=== PATIENT | male | born 1975 | race Two or more races ===

== ENCOUNTER 2019-11-04 10:44 | Inpatient (IN) | payer SELFPAY ==
[~2019-11-04] VITALS: Ht 160 cm; Wt 90.6 kg
[2019-11-04 11:21] LABS: Urine Bacteria NONE SEEN /hpf (None Seen); Urine Blood 3+ /uL (Negative); Urine Mucus FEW (None Seen); Urine Specific Gravity 1.018 (1.001-1.035); Urine WBC 3 /hpf (0 - 3)
[2019-11-04] MEDS ORDERED: SODIUM CHLORIDE 0.9% 1,000 ML IV ONE (12:00)
[2019-11-04] MEDS ORDERED: KETOROLAC TROMETH 15 mg/ml 1ML VL IV ONE (12:00)
[2019-11-04 12:12] LABS: Basophils # (auto) 0 10 ^3/uL (0-0.2); Basophils % (auto) 0.2 % (0.0-2.0); Eosinophils # (auto) 0 10 ^3/uL (0-0.8); Eosinophils % (auto) 0.1 % (0.0-7.0); Hematocrit 43.6 % (41.0-53.0); Hemoglobin 15.1 g/dL (13.5-17.5); Lymphocytes # (auto) 1.7 10 ^3/uL (0.4-5.4); Lymphocytes % (auto) 11.2 % (10.0-50.0); Mean Corpuscular Hemoglobin 30.2 pg (28.0-32.0); Mean Corpuscular Hgb Conc. 34.7 g/dL (32.0-36.0); Mean Corpuscular Volume 87.2 fL (80.0-100.0); Monocytes # (auto) 0.9 10 ^3/uL (0-1.3); Monocytes % (auto) 5.8 % (0.0-12.0); Neutrophils # (auto) 12.4 10 ^3/uL (1.6-8.6); Neutrophils % (auto) 82.7 % (37.0-80.0); Platelet Count (auto) 252 10^3/uL (140-450)
[2019-11-04 12:27] LABS: Calcium 8.9 mg/dL (8.5-10.1); Potassium 3.4 mmol/L (3.5-5.1)
[2019-11-04 12:40] LABS: BUN/Creatinine Ratio 12.5; Bilirubin, Total 0.4 mg/dL (0.2-1.0); Total Protein 8.2 g/dL (6.4-8.2)
[2019-11-04] MEDS: SODIUM CHLORIDE 0.9% 1,000 ML IV SCH (16:14)
[2019-11-04] MEDS ORDERED: ONDANSETRON HCL 4 MG/2 ML VIAL IV PRN (16:15)
[2019-11-04] MEDS ORDERED: TAMSULOSIN HYDROCHLORIDE 0.4 MG CAP PO ONE (16:15)
[2019-11-04] MEDS ORDERED: ACETAMINOPHEN 500 MG TAB PO PRN (16:15)
[2019-11-04] MEDS: MORPHINE SULF INJ 2 MG/ML SYRINGE 1ML IV PRN (16:19)
[2019-11-04] MEDS ORDERED: POTASSIUM CHL 10 Meq TABLET PO ONE (17:00)
[2019-11-04] MEDS: TAMSULOSIN HYDROCHLORIDE 0.4 MG CAP PO SCH (17:16)
--- NOTE | 2019-11-04 19:11 | NUR ---
RECEIVED PATIENT FROM DAY SHIFT RN. PATIENT RESTING IN BED. NO S/S OF DISTRESS NOTED. C/O PAIN @ 3/10 AFTER PAIN MEDICATION GIVEN EARLIER. INSTRUCTED PATIENT THE SCHEDULE OF PAIN MANAGEMENT AND WILL COME BACK FOR PAIN MEDICATION LATER WHEN THE TIME IS DUE AND PER PATIENT REQUESTS. POC INSTRUCTED AND ENCOURAGED PATIENT TO CALL FOR PIGMENT MIXER IF NEEDED. BED IN LOWEST POSITION WITH SIDE RAILS UP X 2. CALL [place] WITHIN REACH. CONTINUE TO MONITOR FOR CHANGES Q1H AND PRN. .
[2019-11-04] MEDS: HYDROcodone-ACET 5/325MG TAB PO PRN (19:16)
--- NOTE | 2019-11-04 20:24 | NUR ---
MOVED PATIENT TO [address]. PATIENT WALKED TO ROOM WITH STEADY GAIT. NO S/S OF DISTRESS NOTED. ADMISSION ASSESSMENT DONE. CONTINUE CARE.
[2019-11-04 22:00] VITALS: BP 140/96
--- NOTE | 2019-11-05 00:07 | NUR ---
PATIENT RESTING IN BED WITH EYES CLOSED. NO S/S OF DISTRESS NOTED. DENIED PAIN AT THIS TIME. CONTINUE TO MONITOR.
[2019-11-05] MEDS: SODIUM CHLORIDE 0.9% 1,000 ML IV SCH ×3 (00:08→15:06)
[2019-11-05] MEDS: MORPHINE SULF INJ 2 MG/ML SYRINGE 1ML IV PRN (01:39)
--- NOTE | 2019-11-05 01:39 | NUR ---
PATIENT WOKE UP BY PAIN @ 02/18. MEDICATED PATIENT ORDERED. CONTINUE TO MONITOR.
--- NOTE | 2019-11-05 02:05 | NUR ---
REASSESSED FOR PAIN, PATIENT SLEEPING. NO S/S OF PAIN NOTED. CONTINUE TO MONITOR.
--- NOTE | 2019-11-05 03:23 | NUR ---
PATIENT SLEEPING. NO S/S OF DISTRESS NOTED. BREATHING EVEN AND UNLABORED. CONTINUE TO MONITOR.
[2019-11-05 05:00] VITALS: BP 136/94
[2019-11-05 05:17] LABS: Basophils # (auto) 0 10 ^3/uL (0-0.2); Basophils % (auto) 0.4 % (0.0-2.0); Eosinophils # (auto) 0 10 ^3/uL (0-0.8); Eosinophils % (auto) 0.3 % (0.0-7.0); Hematocrit 42.1 % (41.0-53.0); Hemoglobin 14.6 g/dL (13.5-17.5); Lymphocytes # (auto) 2.1 10 ^3/uL (0.4-5.4); Lymphocytes % (auto) 16.5 % (10.0-50.0); Mean Corpuscular Hemoglobin 30.2 pg (28.0-32.0); Mean Corpuscular Hgb Conc. 34.7 g/dL (32.0-36.0); Mean Corpuscular Volume 87.2 fL (80.0-100.0); Monocytes # (auto) 1.1 10 ^3/uL (0-1.3); Monocytes % (auto) 8.4 % (0.0-12.0); Neutrophils # (auto) 9.3 10 ^3/uL (1.6-8.6); Neutrophils % (auto) 74.4 % (37.0-80.0); Platelet Count (auto) 237 10^3/uL (140-450); Red Blood Cells 4.83 10^6/uL (4.5-5.90); Red Cell Distribution Width 12.9 % (11.8-14.3); White Blood Cell 12.5 10^3/uL (4.4-10.8)
[2019-11-05 05:47] LABS: Calcium 8.3 mg/dL (8.5-10.1); Potassium 3.8 mmol/L (3.5-5.1)
--- NOTE | 2019-11-05 07:55 | NUR ---
Patient sitting in bed, awake, oriented x4, no acute distress noted.
[2019-11-05] MEDS: cefTRIAXone 1GM/50ML D5W 50 ML IV SCH (08:48)
[2019-11-05 09:00] VITALS: BP 140/88
[2019-11-05] MEDS: FAMOTIDINE 20 MG TAB PO SCH (09:28)
--- NOTE | 2019-11-05 12:53 | NUR ---
Kaylah Yang. at bedside. ordered to follow up with Ray Borges or Tawanda Garcia for Urology Consult. Dr. Lo ordered to continue with straining the urine for kidney stones.
[2019-11-05 13:00] VITALS: BP 134/87
[2019-11-05] MEDS: HYDROcodone-ACET 5/325MG TAB PO PRN ×2 (13:02→19:07)
--- NOTE | 2019-11-05 13:02 | NUR ---
Patient stated his stomach, back hurts, pain level at 6/10 at this time. [place] 5/325 PO given for pain as ordered. Patient to strain his urine for kidney stones.
[2019-11-05 17:00] VITALS: BP 107/69
[2019-11-05] MEDS ORDERED: MANNITOL FTV 25% 12.5 GM/50 ML 50 ML IV ONE (18:15)
--- NOTE | 2019-11-05 18:29 | NUR ---
MONA Ndiaye came over for Urology Consult.
[2019-11-05] MEDS: TAMSULOSIN HYDROCHLORIDE 0.4 MG CAP PO SCH (18:57)
--- NOTE | 2019-11-05 19:20 | NUR ---
Opening Shift Note Received report from Savanna LARSEN. Assumed care of patient, awake and alert. No S/S of distress/SOB. Still with moderate flank pain, medication not due. Instructed on POC and to call for assist PRN, will continue to monitor for changes Q1hr and PRN.
[2019-11-05 22:00] VITALS: BP 137/99
[2019-11-06] MEDS: SODIUM CHLORIDE 0.9% 1,000 ML IV SCH ×2 (01:30→08:59)
[2019-11-06 05:00] VITALS: BP 117/87
--- NOTE | 2019-11-06 07:35 | NUR ---
Patient in bed, awake, oriented x4, no acute distress noted. Patient stated his stomach and lower back not hurting bad. Patient asked if he's going home today. Informed the patient we're waiting for the doctor to come over to see him.
[2019-11-06] MEDS: FAMOTIDINE 20 MG TAB PO SCH (08:59)
[2019-11-06] MEDS: cefTRIAXone 1GM/50ML D5W 50 ML IV SCH (08:59)
[2019-11-06 09:00] VITALS: BP 128/78
--- NOTE | 2019-11-06 10:50 | NUR ---
Christiano Yang at bedside. Patient stated his stomach and lower back does not hurt anymore. Dr. Lo explained to patient to follow up with Rusty Garcia for Urology as an outpatient. Patient for discharge today. Patient can go home after lunch.
[2019-11-06 12:46] VITALS: BP 128/78
[2019-11-06 13:00] VITALS: BP 152/96
--- NOTE | 2019-11-06 13:20 | NUR ---
Prescription given to patient.
--- NOTE | 2019-11-06 13:25 | NUR ---
Discharge instructions given as ordered. Encourage to follow up with PMD as instructed. Patient has no insurance, no primary MD. patient referred to [facility]. All questions and concerns addressed. Patient verbalized understanding. Medication reconciliation form completed and copy given to patient. IV removed with catheter intact, pressure dressing applied. Patient is ambulatory, refused to be taken to vehicle via wheelchair, patient with all personal belongings. Patient to wait for his family member at the Main Lobby. No distress noted at time of departure.
== END 2019-11-06 13:25 | disposition home or self-care (01) | DRG 690 ==
LOC: ER 10:48 → OVERFLOW 10:49 → WEST WING 17:38
PROVIDERS: ADMIT Nurse Practitioner Acute Care; ATTEND Family Medicine
DX: N13.6 Pyonephrosis (principal); E66.9 Obesity, unspecified; E86.0 Dehydration; E87.6 Hypokalemia; K76.0 Fatty (change of) liver, not elsewhere classified; Z82.49 Family history of ischemic heart disease and other diseases of the circulatory system; Z83.3 Family history of diabetes mellitus; Z79.899 Other long term (current) drug therapy; Z68.35 Body mass index [BMI] 35.0-35.9, adult
CPT/HCPCS: 36415; 74176; 80048; 80053; 81001; 85025; 87086; G0378; J0696; J2405